=== PATIENT | female | born 1985 | race Hispanic/Latino ===

== ENCOUNTER 2018-05-25 14:35 | Outpatient (CLI) | payer BC ==
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
== END 2018-05-25 14:36 | disposition home or self-care (01) ==
LOC: TBSIIMAG 14:35
PROVIDERS: ATTEND Surgery
DX: S22.079A Unspecified fracture of T9-T10 vertebra, initial encounter for closed fracture (principal); S22.089A Unspecified fracture of T11-T12 vertebra, initial encounter for closed fracture; M54.5 Low back pain
CPT/HCPCS: 72100